=== PATIENT | male | born 1975 | race Caucasian/White ===

== ENCOUNTER 2017-07-03 19:34 | Emergency (ER) | payer MEDICAID ==
[~2017-07-03] VITALS: Ht 193 cm; Wt 136.4 kg
[~2017-07-03 19:34] MED LIST: ATOR20TA9 PO; CITA40TA5 PO; FLUT1DIS IH; GABA300C10 PO; INSU100V8 SQ; LISI-170 PO; METF10002 PO; TRAZ50TA18 PO
[2017-07-03 19:35] VITALS: BP 218/108
[2017-07-03] MEDS ORDERED: ONDANSETRON ODT 4 MG ONE (19:55)
[2017-07-03] MEDS ORDERED: DIAZEPAM 5 MG TABLET ONE (19:55)
[2017-07-03] MEDS ORDERED: HYDROmorphone 2 MG/ML, 1ML ONE ×2 (19:58→22:31)
[2017-07-03] MEDS ORDERED: DIAZEPAM 5 MG TABLET PO ONE (20:00)
[2017-07-03] MEDS ORDERED: HYDROmorphone 1 MG/ML, 1ML IM ONE (20:00)
[2017-07-03] MEDS ORDERED: ONDANSETRON ODT 4 MG PO ONE (20:00)
[2017-07-03] MEDS ORDERED: HYDROmorphone 2 MG/ML, 1ML IM ONE (22:30)
== END 2017-07-03 23:44 | disposition home or self-care (01) ==
LOC: ED 23:40
DX: S62.304A Unspecified fracture of fourth metacarpal bone, right hand, initial encounter for closed fracture (principal); S39.012A Strain of muscle, fascia and tendon of lower back, initial encounter; E78.5 Hyperlipidemia, unspecified; W11.XXXA Fall on and from ladder, initial encounter; Y93.89 Activity, other specified; Y92.89 Other specified places as the place of occurrence of the external cause; Y99.8 Other external cause status
CPT/HCPCS: 29125; 72131; 73130; 96372; 99284; J1170; Q0162